=== PATIENT | female | born 1990 | race Caucasian/White ===

== ENCOUNTER → 2018-01-31 08:58 | Outpatient (CLI) | payer BC, SELFPAY ==
[2018-02-05 13:24] LABS: HPV Reflexed? NOT INDICATED
== END ==
PROVIDERS: Visit Provider Obstetrics & Gynecology
DX: Z12.4 Encounter for screening for malignant neoplasm of cervix (principal)
CPT/HCPCS: 88175; G0145

== ENCOUNTER → 2019-08-29 | Outpatient (CLI) | payer BC, SELFPAY ==
[2019-08-29 16:46] LABS: Cholesterol 227 mg/dL (200); Glucose 85 mg/dL (74-106)
[2019-09-04 10:50] LABS: High Density Lipoprotein 57 mg/dL; Triglycerides 82 mg/dL; Very Low Density Lipoprotein 16 mg/dL (5-40)
== END | disposition home or self-care (01) ==
LOC: WOBLAB 15:10
PROVIDERS: PCP Family Medicine; Visit Provider Obstetrics & Gynecology
DX: Z00.00 Encounter for general adult medical examination without abnormal findings (principal)
CPT/HCPCS: 36415; 80061; 82465; 82947

== ENCOUNTER → 2019-09-19 | Outpatient (CLI) | payer BC, SELFPAY ==
[2019-09-19 16:19] LABS: Free T3 2.8 pg/mL (2.18-3.98); T4 Free Direct 0.95 ng/dL (0.76-1.46); Thyroid Stim Hormone (TSH) 1.26 uIU/mL (0.358-3.74)
[2019-09-24 21:47] LABS: T3 Reverse 18.3 ng/dL (9.2-24.1)
== END | disposition home or self-care (01) ==
LOC: WOBLAB 11:06
PROVIDERS: PCP Family Medicine; Visit Provider Obstetrics & Gynecology
DX: R68.83 Chills (without fever) (principal)
CPT/HCPCS: 36415; 84439; 84443; 84481; 84482

== ENCOUNTER → 2020-09-21 11:32 | Outpatient (CLI) | payer BC, SELFPAY ==
[2020-09-21 13:16] LABS: Cholesterol 217 mg/dL (200); Glucose 81 mg/dL (74-106); High Density Lipoprotein 64 mg/dL; Triglycerides 55 mg/dL; Very Low Density Lipoprotein 11 mg/dL (5-40)
[2020-10-01 10:44] LABS: HPV APTIMA, High Risk Negative (Negative)
[2020-10-01 10:45] LABS: HPV Reflexed? YES, CHARGE PATIENT
== END ==
PROVIDERS: PCP Family Medicine; Visit Provider Obstetrics & Gynecology
DX: E78.5 Hyperlipidemia, unspecified (principal); Z12.4 Encounter for screening for malignant neoplasm of cervix
CPT/HCPCS: 36415; 80061; 82947; 87624; 88175; G0145

== ENCOUNTER 2021-10-01 10:22 | Outpatient (CLI) | payer BC, SELFPAY ==
[2021-10-01 11:03] LABS: Absolute Lymphocyte Count 1.91 X10^3/uL (0.83-4.51); Absolute Neutrophil Count 2.5 X10^3/uL (2.0-7.7); Basophil# 0.04 X10^3/uL; Basophil% 0.8 % (0-1); Eosinophil# 0.33 X10^3/uL; Eosinophils% 6.3 % (0-5); Hematocrit 39.2 % (37-47); Hemoglobin 13.2 g/dL (12.0-15.0); Lymphocyte # 1.91 X10^3/ul (0.83-4.51); Lymphocyte % 36.5 % (19-41); Mean Corp Hgb Conc 33.7 g/dL (32-36); Mean Corpuscular Hgb 30.1 pg (27.0-32.0); Mean Corpuscular Volume 89.5 fL (81-99); Mean Platelet Vol. 9.7 fl (6.2-12.0); Monocyte# 0.42 X10^3/uL; NRBC Flagged by Analyzer 0 % (0-5); Neutrophil # 2.51 X10^3/uL (2.7-7.7); Platelet Count 274 K/mm3 (150-450); RBC Distribution Width CV 12.2 % (11.6-14.6); RBC Distribution Width SD 40.1 fl (35.1-43.9); Red Blood Count 4.38 M/mm3 (4.2-5.4); White Blood Count 5.2 K/mm3 (4.4-11.0)
[2021-10-01 11:15] LABS: Cholesterol 210 mg/dL (200); High Density Lipoprotein 61 mg/dL; Triglycerides 70 mg/dL; Very Low Density Lipoprotein 14 mg/dL (5-40)
[2021-10-01 11:20] LABS: Hemoglobin A1c 5.3 % (3.8-5.6)
== END 2021-10-01 23:59 | disposition home or self-care (01) ==
LOC: WOBLAB 10:23
PROVIDERS: PCP Family Medicine; Visit Provider Obstetrics & Gynecology
DX: Z13.228 Encounter for screening for other metabolic disorders (principal); E78.5 Hyperlipidemia, unspecified
CPT/HCPCS: 36415; 80061; 83036; 85025

== ENCOUNTER 2021-12-07 10:59 | Day surgery (SDC) | payer BC, SELFPAY ==
[2021-12-07] VITALS (7 sets, daily range): BP systolic 103–122; BP diastolic 69–80; PULSE 67–90; RESP 14–18; TEMP 36.1–36.6; O2SAT 100; BMI 27.8
--- NOTE | 2021-12-07 | COLBX_PTH ---
PATIENT: MACKENZIE REAL LOC: EN U#:[id number] AGE/SX: 31/F ROOM: RE12/07/[address]: Dr. Milton Guajardo DO : 1990 BED: DIS: 12/07/2021 SPEC #: [id number] RECD: 12/07/21 14:31 STATUS: ADELIA GERSON #: [id number] GERMAN: 12/07/21 00:[address]: Milton Guajardo DEPT: SURGICAL PATHOLOGY RECD BY: Emeterio Garcia ENTERED: 12/08/21 11:49 SP TYPE: COLON BX ONEIL DR: Dr. Emre Mcnulty MD Tissues: A - Ileum, NOS B - Sigmoid colon biopsy Procedures: Surgery Specimen Level IV HEADER OPERATION: Colonoscopy (MAC) PRE-OP DIAGNOSIS: Pelvic and perineal pain, pelvic congestion syndrome, rectal bleed TISSUE SUBMITTED: A ? Terminal ileum biopsy, B ? Sigmoid colon biopsy MICROSCOPIC DIAGNOSIS A. Terminal ileum, biopsy: Fragments of small intestinal mucosa, no pathologic diagnosis. B. Sigmoid colon, biopsy: Fragments of colonic mucosa with focal mucosal congestion and hemorrhage. NAOMI:willie 12/09/2021 MICROSCOPIC DESCRIPTION Slides are reviewed. GROSS DESCRIPTION A - Received in fixative is one container labeled with the patient's name and designated terminal ileum biopsy. The specimen consists of multiple irregular fragments of light henao soft tissue that in aggregate measure 0.8 x 0.3 x 0.1 cm. The specimen is totally submitted in one cassette. B - Received in fixative is one container labeled with the patient's name and designated sigmoid colon biopsy. The specimen consists of two irregular fragments of light henao soft tissue that in aggregate measure 0.4 x 0.4 x 0.1 cm. The specimen is totally submitted in one cassette. / NAOMI:willie 12/08/2021 TC:5 CPT: 80661 x2
[2021-12-07] MEDS: Lactated Ringers 1,000 ML 15 ML IV (11:37)
[2021-12-07 11:51] LABS: Internal QC Validated? YES +Cl - CLEAR BKGD; Pregnancy, Urine Negative Negative
--- NOTE | 2021-12-07 12:01 | HP.PCM_ITS ---
History and Physical Date of Admission: 12/07/21 MACKENZIE REAL, is a 31 F who presents to the office today for Initial consult. 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 Hemoglobin 3.18.22 13.2. PMH includes pelvic congestion syndrome s/p pelvic venogram. When she is menstruating she is experiencing pelvic pain, rectal pain with BM, hemorrhoids and rectal bleeding. This has been going on for about a year. IR seen who recommended MRI performed showing varicose veins in her pelvic region, embolized ovarian veins with possible embolization of veins closer to rectum. Makeup Instructor feels she warrants a colonoscopy. ROS Const Constitutional: No fatigue, malaise, night sweats, weight change, sleep problems, abnormal sleep pattern or change in appetite ENT ENT: No difficulty swallowing, hoarseness or sore throat Cardio Cardiology: No chest pain at rest Gastro GI: No belching, bloating, change in bowel habits, change in stool character, coffee ground emesis, constipation, cramping, diarrhea, heartburn, difficulty swallowing, feeling full early, excessive flatus, incontinent of stools, Vomiting blood/hematemesis, Blood in stool, loose stools, Black,tarry stools, nausea/dyspepsia, pain with swallowing, vomiting or other Musc Musculoskeletal: No joint pain Skin Skin: No yellowing of the eye or itchy eyes Neuro Neurology: No behavioral changes Psych Psychiatric: No abnormal sleep pattern, No anxiety, No behavioral changes, No change in appetite and No depression Endo Endocrine: No fatigue or weight change Aller/Imm Allergy/Immunologic: No itchy eyes Checo/Lymp Hematologic/Lymphatic: No easy bleeding or easy bruising Exam Const General: cooperative and comfortable Nutritional Appearance: average body habitus and well nourished [facility] Head: normal to inspection Ears: hearing grossly normal bilaterally Nose: external nose normal Face and sinus: normal facial exam Mouth: oral mucosae normal Throat: posterior oropharynx normal Eyes General: appearance normal, both eyes and all related structures Neck Neck: normal visual inspection Chest Chest palpation & inspection: normal inspection of the chest and normal palpation of entire chest wall Resp Effort & Inspection: normal respiratory effort Auscultation: Bilateral: Clear to Auscultation Cardio Palpation: normal PMI Rate: regular rate Rhythm: regular rhythm GI Inspection: normal to inspection Auscultation: normal bowel sounds Percussion: normal to percussion Palpation: no hepatosplenomegaly Skin General: no rashes or lesions noted Neuro General: patient alert Extrem General: normal to inspection Psych Affect: normal affect Quality Reporting Tobacco Screening ([facility] 138) Smoking Status: Never smoker Assessment and Plan Assessment and Plan (1) Pelvic and perineal pain: Status: Inactive (2) Pelvic congestion syndrome: Status: Acute Plan - Dr. Rose Friend, DO: I told her to consider a hypercoagulable work-up due to the fact that she has such large dilated veins in her pelvis. She showed me the venography that was done which she had interventional radiology to treat her ovarian vein to help from pelvic congestion syndrome. (3) Rectal bleed: Status: Acute Orders: Orders: Colonoscopy Today Plan - Dr. Rose Friend, DO: She does have a history of hemorrhoidal disease. Her bleeding could be secondary to internal or external hemorrhoids. She does not have any rectal pain. She does not have her menstrual cycle. We will be evaluating her rectum for varicosities, dilated rectal veins, hemorrhoidal disease, fissuring disease, endometrial disease or inflammatory bowel disease. I have re-examined the patient. There are no clinical changes since date of exam.
--- NOTE | 2021-12-07 12:40 | OP.COLON_ITS ---
Patient Name: Alecia Keene Procedure Date: 12/07/2021 11:50 AM Date of : 1990 Age: 31 Procedure: Colonoscopy Indications: Hematochezia Providers: Milton Guajardo DO Medicines: Monitored Anesthesia Care Patient Profile: This is a 31 year old female. Refer to note in patient chart for documentation of history and physical. Last Colonoscopy: none. The patient's first colonoscopy is today. Complications: No immediate complications. Procedure: Pre-Anesthesia Assessment: - Prior to the procedure, a History and Physical was performed, and patient medications and allergies were reviewed. The risks and benefits of the procedure and the sedation options and risks were discussed with the patient. All questions were answered and informed consent was obtained. Patient identification and proposed procedure were verified by the physician in the pre-procedure area. Mental Status Examination: alert and oriented. Airway Examination: normal oropharyngeal airway and neck mobility. Respiratory Examination: clear to auscultation. CV Examination: normal. Prophylactic Antibiotics: The patient does not require prophylactic antibiotics. Prior Anticoagulants: The patient has taken no previous anticoagulant or antiplatelet agents. After reviewing the risks and benefits, the patient was deemed in satisfactory condition to undergo the procedure. The anesthesia plan was to use moderate sedation / analgesia (conscious sedation). Immediately prior to administration of medications, the patient was re-assessed for adequacy to receive sedatives. The heart rate, respiratory rate, oxygen saturations, blood pressure, adequacy of pulmonary ventilation, and response to care were monitored throughout the procedure. The physical status of the patient was re-assessed after the procedure. After I obtained informed consent, the scope was passed under direct vision. Throughout the procedure, the patient's blood pressure, pulse, and oxygen saturations were monitored continuously. The colonoscope was introduced through the anus and advanced to the terminal ileum. The terminal ileum, ileocecal valve, appendiceal orifice, and rectum were photographed. Scope In: 12:13:42 PM Scope Withdrawal Time 0 hours 11 minutes 0 seconds Scope Out: 12:29:17 PM Total Procedure Duration Time 0 hours 15 minutes 35 seconds Findings: An anal fissure was found on perianal exam. Skin tags were found on perianal exam. Hemorrhoids were found on perianal exam. An area of mildly congested mucosa was found in the sigmoid colon. Biopsies were taken with a cold forceps for histology. Verification of patient identification for the specimen was done. Estimated blood loss was minimal. A localized area of the terminal ileum was congested. Biopsies were taken with a cold forceps for histology. Verification of patient identification for the specimen was done. Estimated blood loss was minimal. Impression: - Anal fissure found on perianal exam. - Perianal skin tags found on perianal exam. - Hemorrhoids found on perianal exam. - Congested mucosa in the sigmoid colon. Biopsied. - Congested mucosa in the terminal ileum. Biopsied. Recommendation: - Written discharge instructions were provided to the patient. - The signs and symptoms of potential delayed complications were discussed with the patient. - Patient has a contact number available for emergencies. - Return to normal activities tomorrow. - Resume previous diet. - Continue present medications. - Await pathology results. - Repeat colonoscopy is recommended for surveillance. The colonoscopy date will be determined after pathology results from today's exam become available for review. -Hydrocortisone suppositories twice a day x 21 days Procedure Code(s): --- Professional --- 95930, Colonoscopy, flexible; with biopsy, single or multiple CPT copyright 2017 [employer]. All rights reserved. The codes documented in this report are preliminary and upon ship's pilot review may be revised to meet current compliance requirements. Milton Guajardo DO 12/07/2021 12:39:38 PM This report has been signed electronically. Number of Addenda: 1 Note Initiated On: 12/07/2021 11:50 AM Addendum Number: 1 Addendum Date: 04/15/2022 6:11:11 AM MAC was used as sedation for this procedure. Milton Guajardo DO 04/15/2022 6:11:15 AM This report has been signed electronically.
--- NOTE | 2021-12-07 12:41 | OP.CCLET_ITS ---
04/15/2022 Emre Mcnulty [address] [place] [address] Re : Colonoscopy procedure for Alecia [place] Dear Dr. Mcnulty This procedure was performed on Tuesday, December 07, 2021. My impressions and recommendations are as follows: Impressions : - Anal fissure found on perianal exam. - Perianal skin tags found on perianal exam. - Hemorrhoids found on perianal exam. - Congested mucosa in the sigmoid colon. Biopsied. - Congested mucosa in the terminal ileum. Biopsied. Recommendations : - Written discharge instructions were provided to the patient. - The signs and symptoms of potential delayed complications were discussed with the patient. - Patient has a contact number available for emergencies. - Return to normal activities tomorrow. - Resume previous diet. - Continue present medications. - Await pathology results. - Repeat colonoscopy is recommended for surveillance. The colonoscopy date will be determined after pathology results from today's exam become available for review. -Hydrocortisone suppositories twice a day x 21 days My findings are described in the full procedure note, which is enclosed. If I can be of further assistance, please feel free to contact me at . Sincerely, Milton Guajardo, 12/07/2021 12:39:38 PM This report has been signed electronically.
== END 2021-12-07 13:18 | disposition home or self-care (01) ==
LOC: EN 11:01 → AC 11:02
PROVIDERS: Anesthesiology; PCP Family Medicine; Referring Provider Internal Medicine Gastroenterology; Visit Provider Internal Medicine Gastroenterology
PROC: 0DJD8ZZ Inspection of Lower Intestinal Tract, Via Natural or Artificial Opening Endoscopic (ICD-10-PCS; CPT 45378; principal; 2021-12-07 11:55)
DX: K63.89 Other specified diseases of intestine (principal); K92.1 Melena; R10.2 Pelvic and perineal pain; K64.9 Unspecified hemorrhoids; K60.2 Anal fissure, unspecified; N94.89 Other specified conditions associated with female genital organs and menstrual cycle
CPT/HCPCS: 45380; 81025; 88305; J7120; J2405

== ENCOUNTER → 2025-04-01 | Outpatient (CLI) | payer BC, SELFPAY ==
[2025-04-01 10:58] LABS: Mucous, Urine 0 SEEN /hpf (<or=2+); Red Blood Cells-Urine 0 SEEN /hpf (0-5)
[2025-04-01 12:14] LABS: Color, Urine Yellow (Yellow); Glucose, Dipstick Normal (Normal); Ketone-Dipstick Negative (Negative); Leukocyte Esterase-Dipstick 100 /ul (Negative); Nitrite-Dipstick Negative (Negative); Occult Blood-Urine Negative /ul (Negative); Protein-Dipstick Negative (Negative); Specific Gravity, Urine 1.010 (1.002-1.030); Urine Bilirubin Dipstick Negative (Negative)
[2025-04-01 12:34] LABS: Squamous Epithelial Cells - UA 25-50 SEEN /hpf (5-10)
== END | disposition home or self-care (01) ==
LOC: MFPLAB 10:55 → LABSPEC 10:56
PROVIDERS: PCP Family Medicine; Visit Provider Nurse Practitioner Family
DX: N39.0 Urinary tract infection, site not specified (principal)
CPT/HCPCS: 81001; 87086

== ENCOUNTER → 2025-04-01 | Outpatient (CLI) | payer BC, SELFPAY ==
--- NOTE | 2025-04-01 09:28 | CT_ITS ---
PROCEDURE: ABDOMEN/PELVIS WITHOUT CONT 04/01/2025 REASON FOR EXAM: LEFT FLANK PAIN Lower abdominal pain. History of prior ovarian vein embolization. TECHNIQUE: Procedure Code: CTABDPEL Modality: CT Procedure: ABDOMEN/PELVIS WITHOUT CONT Noncontrast technique limits evaluation of the abdominal and pelvic viscera. Coronal and Sagittal reconstruction series were provided. One or more dose reduction techniques were used (e.g., Automated exposure control, adjustment of the mA and/or kV according to patient size, use of iterative reconstruction technique). RADIATION DOSE SUMMARY: CTDlvol: 7.12 mGy DLP: 382.48 mGycm COMPARISON: None FINDINGS: Lung bases: The lung bases are clear. Liver: Normal size. No obvious mass. Gallbladder: Unremarkable Spleen: Normal size. Pancreas: Normal size. No surrounding inflammation. Adrenals: Unremarkable Kidneys: Unremarkable. Bladder: The bladder is empty. Reproductive Organs: Unremarkable. Evidence of prior left ovarian vein embolization. Bowel: Unremarkable Appendix: Unremarkable Lymph nodes: Unremarkable. Vasculature: The abdominal aorta and IVC contours are normal. Noncontrast technique limits evaluation. Peritoneum / Retroperitoneum: Small amount of free fluid is seen in the cul-de-sac. Bones: Unremarkable. CT/Abdomen/Pelvis without Cont IMPRESSION: Prior left ovarian vein embolization. Small amount of free fluid is seen in the pelvis. This may be related to the p atient's menstrual phase. Clinical correlation recommended. Reading Location: [place] [id number]
== END | disposition home or self-care (01) ==
LOC: CT 09:26
PROVIDERS: PCP Family Medicine; Referring Provider Nurse Practitioner Family; Visit Provider Nurse Practitioner Family
DX: R10.9 Unspecified abdominal pain (principal)
CPT/HCPCS: 74176